=== PATIENT | female | born 1940 | race Caucasian/White ===

== ENCOUNTER → 2017-01-02 | Outpatient (CLI) | payer MEDICARE, OTHER ==
[~2017-01-02] MED LIST: ADVAIR 250-501 EACH INH; ASPIRIN EC81 MG PO; BYSTOLIC5 MG PO; CLARITIN10 MG PO; CYMBALTA60 MG PO; DAYPRO600 MG PO; DYAZIDE 37.5-21 EACH PO; LIPITOR20 M1 PO; LUNESTA3 MG PO; LYRICA 75MG CAP75 MG PO; MULTIVITAMINS1 EAC1 PO; OXYGEN M-15 INH; PLAVIX75 MG PO; PROBIOTIC1 EAC1 PO; PROTONIX40 MG PO; PROVENTIL OR V6.7 GM INH; SINGULAIR10 MG PO; SPIRIVA18 MCG INH; TYLENOL ARTHRI650 MG PO; VITAMIN D1000 UNI1 PO
== END | disposition disaster alternative care site (69) ==
LOC: GRAD 08:38
DX: R10.11 Right upper quadrant pain (principal); K76.0 Fatty (change of) liver, not elsewhere classified

== ENCOUNTER → 2017-01-12 | Outpatient (CLI) | payer MEDICARE, OTHER | END | disposition disaster alternative care site (69) | LOC: GRAD 16:43 | DX: R10.9 Unspecified abdominal pain (principal); M54.5 Low back pain ==

== ENCOUNTER → 2017-01-16 | Outpatient (CLI) | payer MEDICARE | END | disposition disaster alternative care site (69) | LOC: GRAD 10:34 | DX: K82.8 Other specified diseases of gallbladder (principal); R10.11 Right upper quadrant pain; R93.2 Abnormal findings on diagnostic imaging of liver and biliary tract | CPT/HCPCS: A9537; J2270 ==

== ENCOUNTER → 2017-03-19 | Outpatient (CLI) | payer MEDICARE, OTHER ==
--- NOTE | ~2017-03-19 | PUL ---
PATIENT'S NAME: JUAN MANUEL MEYERS [facility] AGE: 76 Y [address] ROOM: [place] [address] LOCATION: [facility] ADMIT DATE: 03/19/2017 Pulmonary DISCHARGE DATE: FAMILY PHYSICIAN: Andres Moreira MD ATTENDING PHYSICIAN: Tahmina Humphreys NAME OF PROCEDURE: Six Minute Walk Test DATE OF PROCEDURE: March 19, 2017 TECH: ZE Robins REASON FOR EXAM: Dyspnea with exertion RESULTS: Total distance 800 feet. The saturation pre was 92%, during the test required 2 liters of oxygen with that,maintain saturation between 85-89%, post-test saturation was 97% with 2 liters/minute nasal cannula. Heart rate before starting the test was 59 beats per minute, the post test heart rate was 76 beats per minute. The blood pressure before starting the test was 170/67, post the test blood pressure was 175/77. Other household appliances service technician comments - patient complained of ankle pain with walking. PHYSICIAN INTERPRETATION: The total distance on a six minute walk test was 800 feet. There is evidence of significant exercise induced desaturation; required 2 liters/minute of oxygen by nasal cannula to keep O2 saturation 89% or above, the lowest is SPO2 observed during the test was 85% Which improved to 89% with 2 liters/minute oxygen via nasal cannula. MD TRAN GRACE/ene /[id number] dtt: 03/27/17 1101 LEXI MEENAKSHI dtd: 03/23/17 0841
--- NOTE | ~2017-03-19 | PUL ---
PATIENT'S NAME: JUAN MANUEL MEYERS [facility] AGE: 76 Y [address] ROOM: [place] [address] LOCATION: [facility] ADMIT DATE: 03/19/2017 Pulmonary DISCHARGE DATE: FAMILY PHYSICIAN: Andres Moreira MD ATTENDING PHYSICIAN: Tahmina Humphreys NAME OF PROCEDURE: Pulmonary Function Test DATE OF PROCEDURE: March 19, 2017 TECH: ZE Ham REASON FOR EXAM: Dyspnea with exertion PROCEDURES PERFORMED: Spirometry with bronchodilator assessment. Measurement of maximum voluntary ventilation. Measurement of lung volumes. Measurement of diffusion capacity. RESULTS: Spirometry pre bronchodilator FVC was 1.91 liters or 75% of predicted, post bronchodilator FVC was 1.98 liters or 78% predicted. Pre bronchodilator FEV1 was 0.89 liters or 47% predicted, post bronchodilator FEV1 was 0.91 liters or 48% predicted. FEV1/FVC was 46% or 62% of predicted. KJB21-63% was 0.34 liters/second. Maximum voluntary ventilation was 34 liters/minute. This data did not change significantly following inhaled bronchodilator. The lung volume measurement showed total lung capacity was 4.5 liters or 103% of predicted. Functional residual capacity was 3.2 liters or 176% of predicted. Residual volume was 2.6 liters or 143% of predicted. Diffusing capacity not adjusted for hemoglobin was 31% of predicted. The single breath alveolar volume was 2.7 liters, which is support estimate of total lung capacity. The flow volume loop pattern was obstructive. PHYSICIAN INTERPRETATION: This data and the corresponding flow volume is most compatible with severe air flow obstruction which does not respond to an inhaled bronchodilator with evidence of moderate gas trapping and severe gas transfer impairment. MD TRAN GRACE/ene PATIENT'S NAME: JUAN MANUEL MEYERS [facility] AGE: 76 Y [address] ROOM: [place] [address] LOCATION: [facility] ADMIT DATE: 03/19/2017 Pulmonary DISCHARGE DATE: FAMILY PHYSICIAN: Andres Moreira MD ATTENDING PHYSICIAN: Tahmina Humphreys /[id number] dtt: 03/22/17 1634 , JOE ELLIOTT dtd: 03/22/17 0927
[2017-03-19 11:08] LABS: BICARBONATE 28.3 mmol/L (18.0-23.0); PCO2 49 mmHg (35-45); PO2 67 mmHg (80-90)
== END | disposition disaster alternative care site (69) ==
LOC: GRTH 10:37
PROVIDERS: Nurse Practitioner
DX: J44.9 Chronic obstructive pulmonary disease, unspecified (principal)

== ENCOUNTER → 2017-03-25 | Outpatient (CLI) | payer MEDICARE, OTHER ==
--- NOTE | ~2017-03-25 | PUL ---
PATIENT'S NAME: JUAN MANUEL MEYERS [facility] AGE: 76 Y [address] ROOM: [place] [address] LOCATION: [facility] ADMIT DATE: 03/25/2017 Pulmonary DISCHARGE DATE: FAMILY PHYSICIAN: Andres Moreira MD ATTENDING PHYSICIAN: JOE ELLIOTT NAME OF PROCEDURE: Sleep study PROCEDURE DATE: 03/25/17 TECH: EUGENIA Chan TEST #: [facility] [place]# [id number] TECHNICAL PARAMETERS: The patient was studied using International 10/20 measuring system. While the patient was studied, there was continuous monitoring of EEG (8 leads), EOG (2 leads), EKG (3 leads), submental EMG (3 leads), tibial (4 leads), respiratory inductive plethysmography (RIP) for thoracic and abdominal effort, oral and nasal airflow with a thermocouple and pressure transducer, and oximetry. The systems test technician also performed visual and auditory observations noting things like body position, patient's status, breath sounds, artifact, snoring level and patient comments. Continuous sound was monitored using a 2-way speaker system and video monitoring was performed using an infrared camera. Review of the entire study was performed epoch by epoch utilizing a single epoch and multiple epoch capability sleep system. MEDICAL HISTORY: The patient is a 76-year-old with daytime sleepiness and snoring. SLEEP STAGE SUMMARY: The patient was studied for 465 minutes of which she slept for 384 minutes. She fell asleep in 12 minutes and slept for 83% of the night. Sleep architecture revealed a decline in slow wave and REM sleep. RESPIRATORY SUMMARY: Oxygen saturations ranged from 87-91%. This study was done to titrate CPAP which was started at 6 cm and titrated to 12 cm with good control of the respiratory events. EKG SUMMARY: Occasional PVCs were noted. Rhythm appears to be paced. LIMB MOVEMENT SUMMARY: Periodic limb movements were noted with a limb movement index of 40 events per hour and limb movement with arousal index of 12.2 events per hour. These may be clinically relevant. SUMMARY: 1. Obstructive sleep apnea responsive to CPAP at 12 cm. PATIENT'S NAME: JUAN MANUEL MEYERS [facility] AGE: 76 Y [address] ROOM: [place] [address] LOCATION: [facility] ADMIT DATE: 03/25/2017 Pulmonary DISCHARGE DATE: FAMILY PHYSICIAN: Andres Moreira MD ATTENDING PHYSICIAN: JOE ELLIOTT 2. Possible periodic limb movement disorder. PLAN: Patient will receive results from the ordering provider. MD ROHAN SCHREIBER/ /[id number] dtt: 04/10/17 1000 [address] David E. dtd: 03/27/17 1144
== END | disposition disaster alternative care site (69) ==
LOC: GSLP 20:26
DX: G47.33 Obstructive sleep apnea (adult) (pediatric) (principal)